=== PATIENT | male | born 1960 | race Two or more races ===

== ENCOUNTER 2020-03-30 09:00 | Outpatient (CLI) | payer OTHER | END 2020-03-30 23:59 | disposition home or self-care (01) | LOC: LAB 09:00 | PROVIDERS: ATTEND Specialist | DX: Z01.812 Encounter for preprocedural laboratory examination (principal); Z20.828 Contact with and (suspected) exposure to other viral communicable diseases | CPT/HCPCS: 87426; C9803 ==

== ENCOUNTER 2020-04-04 06:08 | Inpatient (IN) | payer OTHER ==
[~2020-04-04] VITALS: Ht 137.2 cm; Wt 68.9 kg
[2020-04-04 06:57] VITALS: BP 146/88
--- NOTE | 2020-04-04 07:03 | NUR ---
MS RN OPENING NOTE RECEIVED PT AWAKE IN BED AT THIS TIME. AOX4. WELSH SPEAKING, PT UNDERSTANDS URDU. NO SOB NOTED, NO S/S OF ANY ACUTE DISTRESS NOTED. NO C/O PAIN AT THIS TIME. RESPIRATIONS ARE EVEN AND UNLABORED. IV ACCESS NOTED IN RIGHT HAND G#20, PATENT, INTACT AND FLUSHING WELL. FALL AND SAFETY PRECAUTION IN PLACE AND MAINTAINED AT ALL TIMES. BED IN LOWEST LOCKED POSITION, HOB ELEVATED, SIDE RAILS UP X 2, CALL LIGHT WITHIN REACH. WILL CONTINUE TO MONITOR
--- NOTE | 2020-04-04 07:14 | NUR ---
RAND SEWER NOTES 0630AM - Received patient for day surgery. Pt ambulatory, independent. Assisted to room. Offered to change into hospital gown. Admission routine done. Witnessed patient signing consents to procedure, anesthesia and blood transfusion. Kept on bed clean, dry and comfortable. Call light within easy reach. Awaiting for surgery as scheduled. Endorsed.
[2020-04-04 08:00] VITALS: BP 129/83
[2020-04-04] MEDS ORDERED: MIDAZOLAM HCL 2 MG/2ML VIAL ONE (08:12)
[2020-04-04] MEDS ORDERED: BUPIVACAINE MPF W/EPI 0.25% 30 ML VIAL ONE (08:13)
[2020-04-04] MEDS ORDERED: FENTANYL PF 100MCG/2ML AMPUL ONE (08:13)
[2020-04-04] MEDS ORDERED: ANESTHESIA TRAY IN PYXIS 1 EA TRAY MC ONE (08:14)
[2020-04-04] MEDS ORDERED: BUPIVACAINE 0.5 % PF 150 MG/30 ML VIAL ONE (08:39)
[2020-04-04] MEDS ORDERED: BACITRACIN 50000 UNITS/VIAL ONE (08:39)
[2020-04-04] MEDS ORDERED: OXYC1TAB12 MT (08:46)
--- NOTE | 2020-04-04 09:09 | NUR ---
PT TRANSPORTED BY BED OUT OF UNIT TO OR AT THIS TIME FOR LEFT REVERSE TOTAL SHOULDER ARTHROPLASTY. WILL CONTINUE WITH PLAN OF CARE
[2020-04-04] MEDS ORDERED: TRANEXAMIC ACID 3,000 MG in SODIUM CHLORIDE IRRIG SOLUTION 70 ML IR ONE (09:30)
[2020-04-04] MEDS ORDERED: MAG HYDROX/AL HYDROX/SIMETH 30 ML UDC PO PRN (12:00)
[2020-04-04] MEDS ORDERED: oxyCODONE IR immediate release 5 MG PO PRN ×2 (12:00)
[2020-04-04] MEDS ORDERED: MAGNESIUM HYDROXIDE 30 ML UDC PO PRN (12:00)
[2020-04-04] MEDS ORDERED: MENTHOL/CETYLPYRD (CEPACOL) 1 LOZ LOZENGE PO PRN (12:00)
[2020-04-04] MEDS ORDERED: HYDROMORPHONE 1 MG/1 ML DISP.SYRIN SQ PRN (12:00)
[2020-04-04] MEDS ORDERED: CLONIDINE HCL 0.1 MG TABLET PO PRN (12:00)
[2020-04-04] MEDS ORDERED: diphenhydrAMINE HCL 25 MG CAPSULE PO PRN (12:00)
[2020-04-04] MEDS ORDERED: TAMSULOSIN 0.4 MG CAP.SR.24H PO SCH (12:00)
[2020-04-04] MEDS ORDERED: ONDANSETRON HCL/PF 4 MG/2 ML VIAL IV PRN (12:00)
[2020-04-04] MEDS ORDERED: BUTALB/APAP/CAFFEINE 1 EACH TABLET PO PRN (12:00)
[2020-04-04] MEDS ORDERED: HYDROMORPHONE 1 MG/1 ML DISP.SYRIN ONE (12:22)
--- NOTE | 2020-04-04 12:50 | NUR ---
PT TRANSPORTED BY BED TO ROOM AT THIS TIME FROM LEFT REVERSE TOTAL SHOULDER ARTHROPLASTY PROCEDURE BY SAM FERREIRA, PT NOTED WITH LEFT SHOULD TAPED AND IN A SLING. POST OP VITALS, BP 141/87 HR 72, RR 18, T 97.0, SPO2 98%. POST OP ORDERS ARE: INCENTIVE SPIROMETER EVERY HOUR, REGULAR DIET, DRESSING CHANGE BY MD ONLY, BATHROOM WITH ASSIST, OOB WITH FWB. ORDERS CARRIED OUT. WILL CONTINUE TO MONITOR
[2020-04-04] MEDS: IV D5/0.45 NACL 1,000 ML IV PRN (13:28)
[2020-04-04] MEDS ORDERED: ZOLPIDEM TARTRATE 5 MG TABLET PO PRN (13:30)
[2020-04-04] MEDS ORDERED: ACETAMINOPHEN 325 MG TABLET PO PRN (13:30)
[2020-04-04] MEDS ORDERED: NICOTINE PATCH (21MG) 21 MG PATCH.TD24 TD SCH (14:00)
[2020-04-04 16:00] VITALS: BP 127/74
[2020-04-04] MEDS: DOCUSATE SODIUM 100 MG CAPSULE PO SCH (17:07)
[2020-04-04] MEDS: ANCEF 1 GM/50 ML D5W IV SCH ×2 (17:07)
--- NOTE | 2020-04-04 17:17 | NUR ---
PT'S GRAND DAUGHTER (OSVALDO - ) CALLED SEVERALLY AND WAS UPDATED ON PT'S CONDITION. WILL CONTINUE WITH PLAN OF CARE
--- NOTE | 2020-04-04 18:30 | NUR ---
RN CLOSING NOTES PT AWAKE IN BED AT THIS TIME. PT REMAINED STABLE THROUGHOUT SHIFT. ALL CARE, NEEDS, MEDICATIONS AND TREATMENT ADMINISTERED ANTICIPATED PER ORDER. SAFETY PRECAUTION IN PLACE AND MAINTAINED AT ALL TIMES. BED IN LOWEST LOCKED POSITION, HOB ELEVATED, RAILS UP X 2, CALL LIGHT WITHIN REACH. WILL ENDORSE TO ELEVATED MOTORMAN NURSE FOR HARRY
--- NOTE | 2020-04-04 19:25 | NUR ---
MS/RN OPENING NOTES: RECEIVED PT. REPORT FROM DAY SHIFT RN, IMMACULATE. PT IS STABLE, AWAKE IN BED AT THIS TIME, WATCHING TV. A/OX4. VERBALLY RESPONSIVE AND ABLE TO MAKE NEEDS KNOWN. CHINESE SPEAKING BUT ALSO UNDERSTANDS FINNISH. NO SOB NOTED, BREATHING EVEN AND UNLABORED. S/P LEFT REVERSE TOTAL SHOULDER ARTHROPLASTY. INCENTIVE SPIROMETER AT BEDSIDE. SAFETY PRECAUTION IN PLACE AND MAINTAINED AT ALL TIMES. BED IN LOWEST LOCKED POSITION, HOB ELEVATED, RAILS UP X 2, CALL LIGHT WITHIN REACH. WILL KEEP MONITORING ACCORDINGLY.
--- NOTE | 2020-04-04 19:26 | NUR ---
MS/RN NOTES: DRESSING IS CLEAN, DRY AND INTACT. NO C/O PAIN AT THIS TIME. WILL CONTINUE TO MONITOR.
[2020-04-04 20:00] VITALS: BP 123/72
[2020-04-04] MEDS: FAMOTIDINE (20 MG) 20 MG TABLET PO SCH (21:39)
[2020-04-05] MEDS ORDERED: HYDROMORPHONE 1 MG/1 ML DISP.SYRIN IM/IV/SC PRN (00:30)
[2020-04-05] MEDS: ANCEF 1 GM/50 ML D5W IV SCH ×2 (02:30)
[2020-04-05] MEDS: IV D5/0.45 NACL 1,000 ML IV PRN (02:33)
--- NOTE | 2020-04-05 07:36 | NUR ---
MS/RN CLOSING NOTES: PT REMAINS STABLE, RESTING IN BED AT THIS TIME, A/OX4. VERBALLY RESPONSIVE AND ABLE TO MAKE NEEDS KNOWN. NO SOB NOTED, BREATHING EVEN AND UNLABORED. INCENTIVE SPIROMETER AT BEDSIDE. SAFETY PRECAUTION IN PLACE AND MAINTAINED AT ALL TIMES. BED IN LOWEST LOCKED POSITION, HOB ELEVATED, RAILS UP X 2, CALL LIGHT WITHIN REACH. ALL DUE MEDS GIVEN ORDERED. ALL NURSING NEEDS MET AND ATTENDED. ENDORSED TO DAY SHIFT FOR HARRY.
[2020-04-05 08:00] VITALS: BP 130/85
--- NOTE | 2020-04-05 08:03 | NUR ---
MS RN OPENING SHIFT NOTES RECEIVED PT RESTING COMFORTABLY IN BED, A/O X4, JAPANESE SPEAKER, ON RA, NO SOB OR RESPIRATORY DISTRESS NOTED, BREATHING EVEN AND UNLABORED, IV TO RT HAND #20G RUNNING D5 1/2 NS @125 ML/HR. PATIENT D/O OF PAIN 01/14 TO LT SHOULDER, BED AT LOWEST POSITION AND LOCKED, SIDE RAILS UP X2, CALL LIGHT WITH IN REACH. WILL CONTINUE TO MONITOR PATIENT.
[2020-04-05] MEDS: DOCUSATE SODIUM 100 MG CAPSULE PO SCH (08:41)
[2020-04-05] MEDS: FAMOTIDINE (20 MG) 20 MG TABLET PO SCH (08:42)
[2020-04-05] MEDS ORDERED: ASPIRIN 325 MG TABLET PO SCH (10:00)
--- NOTE | 2020-04-05 13:19 | NUR ---
RN MS NOTES PT SEEN BY DR. KEN, PER OK TO DISCHARGE PT, PT ALSO SEEN BY PORFIRIO MURPHY, CLEARED FOR PT FOR DISCHARGE.
--- NOTE | 2020-04-05 15:46 | NUR ---
MS RN NOTE DISCHARGE ORDER RECEIVED DISCHARGE ORDER RECEIVED FROM DR. KEN. PATIENT INFORMED OF DISCHARGE TO HOME. PATIENT INSTRUCTED TO F/U WITH DR. DESAI IN 1-2 WEEKS, CONTINUE ON PAIN MEDS PRN, AND MAINTAIN LEFT UPPER EXTREMITY IN SLING AT ALL TIMES. PATIENT VERBALIZED UNDERSTANDING. BELONGINGS CHECKED,SKIN CHECKED, PATIENT IN STABLE CONDITION AWAITING FOR [facility] FOR WIRE ROPE SALES REPRESENTATIVE.
[2020-04-05 16:00] VITALS: BP 130/75
--- NOTE | 2020-04-05 17:21 | NUR ---
ELECTRIC MOTORMAN NOTE PATIENT WAS DISCHARGED IN STABLE CONDITION, IV TO RT HAND D/C BY SAM DE SOUZA, ASSISTED TO [facility] BY MABLE YOO. PATIENT LEFT WITH GRANDAUTHER VIA PRIVATE CAR. Addendum: 04/05/20 at 1725 by PAM KELLY RN ALL BELONGINGS WITH AND PATIENT DISCHARGE PACKET WITH PATIENT.
== END 2020-04-05 17:20 | disposition home or self-care (01) | DRG 483 ==
LOC: DS 06:08 → MED 06:11
PROVIDERS: ADMIT Internal Medicine; ATTEND Internal Medicine
PROC: 0RRK00Z Replacement of Left Shoulder Joint with Reverse Ball and Socket Synthetic Substitute, Open Approach (ICD-10-PCS; principal; 2020-04-04)
DX: M12.812 Other specific arthropathies, not elsewhere classified, left shoulder (principal); I25.10 Atherosclerotic heart disease of native coronary artery without angina pectoris; E11.9 Type 2 diabetes mellitus without complications; I25.2 Old myocardial infarction; F17.210 Nicotine dependence, cigarettes, uncomplicated
CPT/HCPCS: 36415; 82962-TC; 86850-TC; 87081-TC; A4565; A6209; C1776; G0378; J0690; J1100; J1170; J1885; J2250; J2405; J2704; J3010; J3490; J7060